=== PATIENT | female | born 1975 ===

== ENCOUNTER 2024-03-09 05:09 | Day surgery (SDC) | payer OTHER ==
[2024-03-07 09:23] VITALS: BP 154/86
[2024-03-07 10:11] LABS: PH,URINE 5.5 (5.0-8.0); URINE APPEARANCE Clear; URINE BILIRRUBIN Negative (NEGATIVE); URINE BLOOD Large; URINE COLOR Yellow; URINE KETONE Negative (NEGATIVE); URINE LEUKOCYTE Negative; URINE NITRATE Negative; URINE PROTEIN Negative (NEGATIVE); URINE UROBILINOGEN 0.2 E.U./dl
[2024-03-07 10:15] LABS: HEMOGLOBIN 10.3 g/dL (12.0-15.00); MEAN CELL VOLUME 60.4 fL (80.00-100.00); MEAN CORPUSCULAR HEMOGLOBIN 17.7 pg (27.00-32.0); MEAN CORPUSCULAR HGB CONC 29.4 g/dl (32.0-36.0); PLATELET COUNT 309 K/uL (150-450); RED BLOOD COUNT 5.79 M/uL (4.00-6.00)
[2024-03-07 10:17] LABS: URINE BACTERIA 41.5 uL (0.0-1933); URINE EPITHELIAL CELLS 3.2 uL (0.0-38.8); URINE RBC 1459.3 uL (0.0-20.8); URINE WBC 3.2 uL (0.0-23.2)
[2024-03-07 10:26] LABS: INR < 0.93; PARTIAL THROMBOPLASTIN TIME 23.8 SECONDS (22.0-34.0); PROTHROMBIN TIME 9.9 SECONDS (9.0-11.5)
[2024-03-07 10:31] LABS: URINE GLUCOSE >=1000 MG/DL (NEGATIVE)
[2024-03-07 10:51] LABS: BILIRUBIN TOTAL 0.62 mg/dL (0.3-1.2); CALCIUM 9.3 mg/dL (8.5-10.1); CREATININE SERUM 0.8 mg/dL (0.55-1.02); GFR 75.92; GLOBULINA 3.9 G/DL (2.4-3.5); POTASSIUM 4.5 mEq/L (3.5-5.1); TOTAL PROTEIN 7.9 gm/dL (6.4-8.2)
[~2024-03-09] VITALS: Ht 170.2 cm; Wt 111.6 kg
[~2024-03-09 05:09] MED LIST: CLONAZEPAM1 MG PO; CYMBALTA; KETO10TA2 PO; SYNTHROID50 MCG PO; TRIJARDY XR 121 EACH PO; TYLENOL-CODEINE1 TAB PO
[2024-03-09] MEDS ORDERED: CEFAZOLIN SODIUM 1,000 MG VIAL IV ONE (13:15)
[2024-03-09] MEDS ORDERED: CHLORHEXIDINE GLUCONATE 120 ML BOTTLE TOP ONE (13:15)
[2024-03-09] MEDS ORDERED: POVIDONE-IODINE 118 ML BOTT TOP ONE (13:15)
[2024-03-09] MEDS ORDERED: MORGIDOX100 MG PO (14:17)
[2024-03-09] MEDS ORDERED: NAPROXEN500 MG PO (14:18)
[2024-03-09] MEDS ORDERED: MORPHINE SULFATE 4 MG/ML VIAL IV ONE (16:50)
[2024-03-09] MEDS ORDERED: ENALAPRILAT DIHYDRATE 1.25 MG/ML VIAL IV ONE (18:45)
== END 2024-03-09 18:50 | disposition home or self-care (01) ==
LOC: CIR.AMB 05:09
PROVIDERS: ATTEND Obstetrics & Gynecology
DX: D25.0 Submucous leiomyoma of uterus (principal); N84.0 Polyp of corpus uteri; N92.1 Excessive and frequent menstruation with irregular cycle